=== PATIENT | female | born 1940 | race Caucasian/White ===

== ENCOUNTER 2018-05-11 14:47 | Emergency (ER) | payer OTHER ==
[~2018-05-11 14:47] MED LIST: ACETAMINOPHEN325 M1 PO; ASPIRIN81 M2 PO; ATIVAN1 MG PO; BENICAR; BENICAR40 MG PO; CARVEDILOL3.125 MG PO; CLONAZEPAM 0.50.5 M1 PO; GABAPENTIN; GABAPENTIN100 MG PO; MECLIZINE HCL12.5 MG PO; MIRAPEX 0.250.25 M1 PO; MIRAPEX0.25 MG PO; MIRAPEX0.5 MG PO; NORCO 5-325 TA1 EACH PO; PERCOCET 5-3251 EACH PO; PHENERGAN25 M2 RC; PREDNISONE 20 M20 MG PO; PRILOSEC 10MG C10 M1 PO; TIZANIDINE HCL4 MG PO; VALIUM5 MG PO; VICOPROFEN 2001 EACH PO; VITAMIN D1000 UNI1 PO; ZOFRAN 4 MG ORAL4 M1 DIS; ZOFRAN ODT4 MG PO
[2018-05-11] MEDS ORDERED: AMOXICILLIN 50500 MG PO (16:39)
[2018-05-11] MEDS ORDERED: CEPACOL SORE T1 EAC8 PO (16:39)
[2018-05-11 16:47] VITALS: BP 108/66
== END 2018-05-11 18:02 | disposition home or self-care (01) ==
LOC: ER 14:47
DX: J02.9 Acute pharyngitis, unspecified (principal); H66.91 Otitis media, unspecified, right ear; I10 Essential (primary) hypertension; M79.7 Fibromyalgia; M19.90 Unspecified osteoarthritis, unspecified site; F41.9 Anxiety disorder, unspecified; F32.9 Major depressive disorder, single episode, unspecified; Z95.5 Presence of coronary angioplasty implant and graft; Z90.89 Acquired absence of other organs; Z88.5 Allergy status to narcotic agent